=== PATIENT | male | born 1955 | race Caucasian/White ===

== ENCOUNTER 2016-11-04 17:19 | Emergency (ER) | payer MEDICAID ==
[2016-11-04] MEDS ORDERED: Aspirin Low Dose CHEW TAB* 81 MG PO ONE (18:25)
[2016-11-04 19:18] LABS: Hematocrit 42 % (42-52); Hemoglobin 14.3 g/dl (14.0-18.0); Mean Corpuscular HGB Conc 34 g/dl (31-36); Mean Corpuscular Hemoglobin 31 pg (27-31); Mean Corpuscular Volume 92 fL (80-94); Mean Platelet Volume 10 um3 (7.4-10.4); Red Blood Count 4.58 10^6/ul (4.0-5.4); Red Cell Distribution Width 14 % (10.5-15); White Blood Count 10.7 10^3/ul (3.5-10.8)
[2016-11-04 19:39] LABS: Albumin 4.3 g/dL (3.2-5.2); C Reactive Protein 3.35 mg/L (< 5.00); Calcium 10.1 mg/dL (8.6-10.3); EGFR African American 97.4 (>60); EGFR Non-African American 75.7 (>60); Globulin 3.3 g/dL (2-4); Potassium 4.2 mmol/L (3.5-5.0); Total Bilirubin 0.7 mg/dL (0.2-1.0); Total Protein 7.6 g/dL (6.4-8.9)
[2016-11-04] MEDS ORDERED: LORazepam INJ* 2 MG/ML 1 ML VIAL IV ONE (20:05)
--- NOTE | 2016-11-04 20:16 | ED ---
Ernesto Marsh Billy, scribed for Cj Castaneda MD on 11/04/16 at 1830 . Dizziness - HPI Summary HPI Summary: Patient is a 61 year-old male coming to [facility] for evaluation of a brief episode of dizziness this morning at 1000. He states that the episode lasted several seconds. He denies any room-spinning sensation, and when asked to describe the episode, he only states that he felt "wobbly." Denies any falls, head injury, or LOC. His symptoms improved after sitting down and having some water, but he still felt "only so-so" throughout the day. He works at a school and saw the school nurse, who measured his blood pressure at 180 systolic. He then visited his PCP where he had an EKG taken. He states that he has been taking melatonin recently to help him sleep, but he had only 3-4 hours of sleep last night. Patient has a history of bipolar disorder. Denies history of hypertension. - History Of Current Complaint Chief Complaint: EDDizziness Stated Complaint: DIZZINESS,NAUSEA-SENT BY [employer] Time Seen by Provider: 11/04/16 18:01 Hx Obtained From: Patient Onset/Duration: Suddenly Timing: Seconds Severity Initially: Moderate Severity Currently: Moderate Character: Dizzy Aggravating Factor(s): Nothing Alleviating Factor(s): Rest, Other - having water Associated Signs And Symptoms: Negative: Chest Pain, SOB - Allergies/Home Medications Allergies/Adverse Reactions: Allergies Allergy/AdvReac Type Severity Reaction Status Date / Time Penicillins [PCN] Allergy Hives Verified 11/04/16 17:25 Sulfa Antibiotics Allergy Unknown Verified 11/04/16 17:25 Reaction Details PMH/Surg Hx/FS Hx/Imm Hx Endocrine/Hematology History: Denies: Hx Diabetes, Hx Thyroid Disease Cardiovascular History: Denies: Hx Hypertension Respiratory History: Denies: Hx Asthma, Hx Chronic Obstructive Pulmonary Disease (COPD) GI History: Denies: Hx Ulcer Psychiatric History: Reports: Hx Bipolar Disorder - Surgical History Surgery Procedure, Year, and Place: t&a Infectious Disease History: No Infectious Disease History: Denies: Hx Hepatitis, Hx Human Immunodeficiency Virus (HIV), Traveled Outside the [place] in Last 30 Days - Family History Known Family History: Positive: Other - leukemia in father, BRCA in mother - Social History Alcohol Use: Weekly Substance Use Type: Reports: None Hx Tobacco Use: No Smoking Status (MU): Never Smoked Tobacco Review of Systems Negative: Fever Negative: Chest Pain Negative: Shortness Of Breath Neurological: Other - dizzy All Other Systems Reviewed And Are Negative: Yes Physical Exam Triage Information Reviewed: Yes Vital Signs On Initial Exam: Initial Vitals Temp Pulse Resp BP Pulse Ox 98.1 F 57 16 155/81 96 11/04/16 17:25 11/04/16 17:25 11/04/16 17:25 11/04/16 17:25 11/04/16 17:25 Vital Signs Reviewed: Yes Appearance: Positive: Well-Appearing, No Pain Distress Skin: Positive: Warm, Skin Color Reflects Adequate Perfusion, Dry, Other - Widespread eczema. Head/Face: Positive: Normal Head/Face Inspection Eyes: Positive: Normal Neck: Positive: Supple, Nontender Respiratory/Lung Sounds: Positive: Clear to Auscultation, Breath Sounds Present Cardiovascular: Positive: RRR Abdomen Description: Positive: Nontender, Soft Musculoskeletal: Positive: Normal, Strength/ROM Intact Neurological: Positive: Normal, Sensory/Motor Intact, Alert, Oriented to Person Place, Time Psychiatric: Positive: Affect/Mood Appropriate AVPU Assessment: Alert - Cat Coma Scale Coma Scale Total: 15 Diagnostics - Vital Signs Vital Signs Temp Pulse Resp BP Pulse Ox 11/04/16 17:25 98.1 F 57 16 155/81 96 - Laboratory Lab Results: Lab Results 11/04/16 11/04/16 11/04/16 Range/Units 19:10 19:10 19:10 WBC 10.7 (3.5-10.8) 10^3/ul RBC 4.58 (4.0-5.4) 10^6/ul Hgb 14.3 (14.0-18.0) g/dl Hct 42 (42-52) % MCV 92 (80-94) fL MCH 31 (27-31) pg MCHC 34 (31-36) g/dl RDW 14 (10.5-15) % Plt Count 150 (150-450) 10^3/ul MPV 10 (7.4-10.4) um3 Neut % (Auto) 46.3 (38-83) % Lymph % (Auto) 40.1 (25-47) % Bonner % (Auto) 10.4 H (1-9) % Eos % (Auto) 2.6 (0-6) % Baso % (Auto) 0.6 (0-2) % Absolute Neuts (auto) 4.9 (1.5-7.7) 10^3/ul Absolute Lymphs (auto) 4.3 (1.0-4.8) 10^3/ul Absolute Monos (auto) 1.1 H (0-0.8) 10^3/ul Absolute Eos (auto) 0.3 (0-0.6) 10^3/ul Absolute Basos (auto) 0.1 (0-0.2) 10^3/ul Absolute Nucleated RBC 0.01 10^3/ul Nucleated RBC % 0.1 Sodium 136 (133-145) mmol/L Potassium 4.2 (3.5-5.0) mmol/L Chloride 99 L (101-111) mmol/L Carbon Dioxide 30 (22-32) mmol/L Anion Gap 7 (2-11) mmol/L BUN 15 (6-24) mg/dL Creatinine 1.00 (0.67-1.17) mg/dL Est GFR ( Amer) 97.4 (>60) Est GFR (Non-Af Amer) 75.7 (>60) BUN/Creatinine Ratio 15.0 (8-20) Glucose 83 (70-100) mg/dL Lactic Acid 1.4 (0.5-2.0) mmol/L Calcium 10.1 (8.6-10.3) mg/dL Total Bilirubin 0.70 (0.2-1.0) mg/dL AST 68 H (13-39) U/L ALT 70 H (7-52) U/L Alkaline Phosphatase 49 (34-104) U/L Troponin I 0.00 (<0.04) ng/mL C-Reactive Protein 3.35 (< 5.00) mg/L Total Protein 7.6 (6.4-8.9) g/dL Albumin 4.3 (3.2-5.2) g/dL Globulin 3.3 (2-4) g/dL Albumin/Globulin Ratio 1.3 (1-3) Result Diagrams: 11/04/16 19:10 11/04/16 19:10 Lab Statement: Any lab studies that have been ordered have been reviewed, and results considered in the medical decision making process. - EKG 1756 EKG Interpretation: NSR 71 bpm, diffuse non-specific ST changes. Re-Evaluation - Re-Evaluation First Eval Re-Evaluation Time: 20:12 Change: Improved Dizzy Course/Dx - Course Course Of Treatment: Mr. Jackson presented essentially symptom-free. He went to his MD's office because of a very transient dizzy spell this AM about 1000. His BP was a little elevated and his ecg had nonspecific changes so he was sent over for blood tests presumably a troponin. This was negative as was a CRP. I will D/C him back for F/U with his PMD. - Diagnoses Provider Diagnoses: Hypertension Discharge - Discharge Plan Condition: Stable Disposition: HOME Patient Education Materials: Hypertension (ED) Referrals: Romie Bowen MD [Primary Care Provider] - The documentation as recorded by the Ernesto crandall Billy accurately reflects the service I personally performed and the decisions made by me, Cj Castaneda MD.
[2016-11-04 20:46] VITALS: BP 162/69
== END 2016-11-04 20:42 | disposition home or self-care (01) ==
LOC: ED 17:19
DX: I10 Essential (primary) hypertension (principal); R42 Dizziness and giddiness
CPT/HCPCS: 36415; 80053; 83605; 84484; 85025; 86140; 93005; 96374; 99282